=== PATIENT | male | born 1975 | race Caucasian/White ===

== ENCOUNTER 2017-01-03 19:32 | Emergency (ER) | payer OTHER ==
[~2017-01-03] VITALS: Ht 170.2 cm; Wt 80.9 kg
[~2017-01-03 19:32] MED LIST: CIPRO 500MG TA500 MG PO; NEURONTIN300 MG/CAP PO; PAMELOR75 MG PO; PERCOCET 325 MG1 TA2 PO; SOMA 350MG350 MG/TAB PO; ZOCOR 20MG20 MG PO
[2017-01-03 19:35] VITALS: BP 157/100; TEMP 99
[2017-01-03] MEDS ORDERED: AMITRIPTYLINE H10 M1 PO (19:38)
[2017-01-03] MEDS ORDERED: FIORICET 325 MG1 TA1 PO (19:38)
[2017-01-03] MEDS ORDERED: LYRICA 150MG C150 MG PO (19:39)
[2017-01-03] MEDS ORDERED: FLEXERIL5 MG PO (19:39)
[2017-01-03] MEDS ORDERED: NORCO 325 MG-51 TAB PO ×2 (19:40→20:09)
[2017-01-03] MEDS ORDERED: ULTRAM 50MG TAB50 MG PO (20:09)
[2017-01-03 20:33] VITALS: PULSE 78
== END 2017-01-03 20:34 | disposition home or self-care (01) ==
LOC: COL.ER 19:32
DX: T22.212A Burn of second degree of left forearm, initial encounter (principal); X08.8XXA Exposure to other specified smoke, fire and flames, initial encounter; W18.39XA Other fall on same level, initial encounter; Y92.009 Unspecified place in unspecified non-institutional (private) residence as the place of occurrence of the external cause

== ENCOUNTER → 2019-03-21 | Outpatient (CLI) | payer OTHER ==
[~2019-03-21] MED LIST changes: +AMITRIPTYLINE H10 M1 PO; +FIORICET 325 MG1 TA1 PO; +FLEXERIL5 MG PO; +LYRICA 150MG C150 MG PO; +NORCO 325 MG-51 TAB PO; +ULTRAM 50MG TAB50 MG PO
== END ==
LOC: MHCPAIN 14:54
DX: G89.29 Other chronic pain (principal); M54.12 Radiculopathy, cervical region; M47.812 Spondylosis without myelopathy or radiculopathy, cervical region
CPT/HCPCS: G0463

== ENCOUNTER 2020-06-14 10:41 | Day surgery (SDC) | payer SELFPAY ==
[2020-06-14] MEDS ORDERED: FLOMAX 0.40.4 MG/CAP PO (11:42)
[2020-06-14] MEDS ORDERED: SOMA250 MG PO (11:43)
[2020-06-14 14:22] VITALS: BP 144/84; PULSE 81; TEMP 98.9
== END 2020-06-14 12:52 | disposition home or self-care (01) ==
LOC: SDCO 10:41
DX: N20.0 Calculus of kidney (principal); Z88.8 Allergy status to other drugs, medicaments and biological substances; F17.210 Nicotine dependence, cigarettes, uncomplicated; M19.90 Unspecified osteoarthritis, unspecified site; Z53.8 Procedure and treatment not carried out for other reasons